=== PATIENT | male | born 1955 | race Two or more races ===

== ENCOUNTER → 2024-01-01 | Outpatient (BNVA) | payer MEDICARE, MEDICAID, SELFPAY | END | disposition home or self-care (01) | PROVIDERS: PCP Physician Assistant; Referring Provider Physician Assistant; Visit Provider Urology | DX: N40.1 Benign prostatic hyperplasia with lower urinary tract symptoms (principal); N13.8 Other obstructive and reflux uropathy; R97.20 Elevated prostate specific antigen [PSA]; I10 Essential (primary) hypertension; Z80.0 Family history of malignant neoplasm of digestive organs; E66.9 Obesity, unspecified; Z68.28 Body mass index [BMI] 28.0-28.9, adult | CPT/HCPCS: 81003; 99212; G0463 ==

== ENCOUNTER → 2024-03-30 | Outpatient (CLI) | payer MEDICARE, MEDICAID, SELFPAY ==
--- NOTE | 2024-03-30 10:38 | XR_ITS ---
Examination: CT chest with intravenous contrast CT abdomen with intravenous contrast CT pelvis with intravenous contrast CT chest without intravenous contrast CT abdomen without intravenous contrast CT pelvis without intravenous contrast 2-D coronal and sagittal reconstructions Time of exam: March 30, 2024 1126 hours INDICATIONS: Diagnosis malignant neoplasm of the colon this month with staging CTDI: vol (mGy) : 24.7 DLP: (mGycm): 1472 Technique: Multiple axial images of the chest, abdomen and pelvis with intravenous contrast, 3.0 mm slice thickness. Images obtained pre and post intravenous injection Isovue 370 60 cc. 2-D sagittal and coronal reconstructions. Low dose protocols were performed. One or more of the following dose reduction techniques were used; automated exposure control, adjustment of the mA and/or KV according to patient size, use of iterative reconstruction technique. Findings: 4 mm left thyroid nodule No thoracic aortic aneurysmal dilatation Pulmonary artery opacification is reduced No paratracheal tracheobronchial or bronchopulmonary adenopathy 2 mm pulmonary nodule right midlung No pneumonia or pulmonary edema No pleural disease 8mm right lobe liver cyst No focal liver or splenic lesions Absent gallbladder No pancreatic or adrenal mass Multiple bilateral benign renal cysts, the largest in the left kidney 6.8 cm Probable proteinaceous cyst lateral margin right kidney 12 mm and lower pole right kidney 13 mm Aorta normal size Normal appendix Colonic diverticulosis Thickening of the wall of the sigmoid colon at least 18 mm, axial image 251, 4 mm lymph node adjacent to this thickening of the sigmoid colon Prostate is enlarged with irregular contour, transverse dimension 5.3 cm Urinary bladder wall thickening up to 4 mm Severe osteopenia IMPRESSION: 2 mm pulmonary nodule right upper lobe, with this study as baseline recommend 6 month follow-up CT chest without contrast Recommend renal sonography to confirm benign cyst right kidney No focal liver lesions No abdominal or pelvic lymphadenopathy Focal thickening of the wall of the sigmoid colon as above, clinical correlation advised, 4 mm lymph node adjacent to this colonic wall thickening
== END | disposition home or self-care (01) ==
PROVIDERS: PCP Internal Medicine Gastroenterology; Referring Provider Physician Assistant; Visit Provider Physician Assistant
DX: R91.1 Solitary pulmonary nodule (principal); K63.89 Other specified diseases of intestine; C18.9 Malignant neoplasm of colon, unspecified
CPT/HCPCS: 71270; 74178; A4649; Q9967

== ENCOUNTER 2024-07-08 10:47 | Day surgery (SDC) | payer MEDICARE, SELFPAY ==
--- NOTE | 2024-07-07 07:00 | EKG_ITS ---
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
[2024-07-07 09:00] VITALS: BMI 29.7
[2024-07-07 09:37] LABS: Collection Type, Urine Clean Catch
[2024-07-07 10:27] LABS: Bilirubin,Urine Negative (Negative); Blood,Urine Negative (Negative); Clarity,Urine Clear (Clear/Hazy); Color,Urine Colorless (Lt Yel-Yel); Glucose, Urine Negative (Negative); Ketones,Urine Negative (Negative); Leukocyte Esterase,Urine Negative (Negative); Nitrite,Urine Negative (Negative); PH,Urine 6.5 (5.0-7.0); Protein,Urine Negative (Neg - Trace); RBC,Urine < 1 /hpf (0-3); Specific Gravity,Urine 1.004 (1.001-1.035); Squamous Epithelial Cell,Urine < 1 /hpf (0-5); Urobilinogen,Urine Negative mg/dL (0.0-1.0); WBC,Urine < 1 /hpf (0-5)
[2024-07-07 10:27] LABS: Basophils % (Auto) 0 % (0-2.5); Eosinophils # (Auto) 0.3 Thou/mm3 (0.0-0.5); Eosinophils % (Auto) 5 % (0-10); Hematocrit 40.8 % (41.0-53.0); Hemoglobin 13.6 g/dL (13.5-16.0); Immature Granulocytes % (Auto) 0 % (0-0); Immature Granulocytes Auto 0.01 Thou/mm3 (0.00-0.00); Lymphocytes # (Auto) 2.5 Thou/mm3 (1.0-4.8); Lymphocytes % (Auto) 43 % (10-50); Mean Corpuscular HGB Conc 33.3 g/dl (31.0-37.0); Mean Corpuscular Hemoglobin 27.8 pg (25.0-35.0); Mean Corpuscular Volume 83 fL (80-100); Monocytes # (Auto) 0.5 Thou/mm3 (0.0-0.8); Monocytes % (Auto) 9 % (0-12); Neutrophils # (Auto) 2.5 Thou/mm3 (1.8-7.7); Neutrophils % (Auto) 43 % (37-80); Nucleated Red Blood Cell % 0 /100 WBC (0); Platelet Count 177 Thou/mm3 (140-440); RDW Standard Deviation 41.3 fL (35.1-43.9); White Blood Count 5.8 Thou/mm3 (3.8-10.6)
[2024-07-07 10:42] LABS: Alanine Aminotransferase 17 U/L (10-49); Albumin, Serum 4.6 gm/dL (3.4-4.8); Albumin/Globulin Ratio 1.7 (1.2-2.2); Alkaline Phosphatase 91 U/L (46-116); Aspartate Amino Transferase 24 U/L (0-34); BUN/Creatinine Ratio 11 Ratio (12-20); Bilirubin,Total 0.5 mg/dL (0.3-1.2); Blood Urea Nitrogen 10 mg/dL (9-23); Calcium 9.3 mg/dL (8.3-10.6); Calcium (Corrected) 9.3 mg/dL (8.5-10.1); Carbon Dioxide 28.7 mMol/L (20.0-31.0); Creatinine (Component) 0.9 mg/dL (0.6-1.3); Estimated Creatinine Clearance 73.8 mL/min (>60); Globulin 2.7 gm/dL (2.3-3.5); Glucose 93 mg/dL (74-106); Total Protein 7.3 gm/dL (5.7-8.2); eGFR > 60 See Note
[2024-07-07 10:46] LABS: Anion Gap 6 (7-16); Chloride 104 mMol/L (98-107); Osmolality,Calculated 276 (275-295); Potassium 3.6 mMol/L (3.4-5.1); Sodium 139 mMol/L (136-145)
--- NOTE | 2024-07-07 13:55 | SUR.PREOP ---
Pt's ride and daughter Piper notified to bring pt tomorrow at 1030.
--- NOTE | 2024-07-07 16:09 | ESHP_ITS ---
RE: YARIEL MILLER : 1955 DATE OF ADMISSION: 07/07/2024 HISTORY OF PRESENT ILLNESS: The patient is a 69-year-old gentleman, who was referred to me with a history of prostatism and elevated PSA. His PSA is 9.0. He is Hebrew- speaking. Nocturia x1. Urinary stream is fair. There is no burning. No blood in the urine. PAST MEDICAL HISTORY: He has a history of colon cancer and had surgery in 05/2024. He has a history of hypertension. No history of diabetes. PAST SURGICAL HISTORY: Previous surgeries include cholecystectomy, left eye surgery, left kidney cyst, and colon surgery. ALLERGIES: NONE KNOWN. HOME MEDICATIONS: He takes: 1. Tamsulosin 0.4 mg. 2. Losartan. 3. Statin medication. 4. Norvasc. 5. . SOCIAL HISTORY: He has 8 children. PHYSICAL EXAMINATION: Reveals: HEENT: Normal. NECK: Supple. LUNGS: Clear. CARDIOVASCULAR: Heart sounds are normal. ABDOMEN: Soft without any organomegaly. No guarding. No rigidity. EXTREMITIES: Normal. GENITOURINARY: Phallus is normal. Testes are down in the scrotum. RECTAL: Revealed moderately enlarged prostate, left lobe is larger than right, and prostate is quite high on rectal exam. The patient had colon surgery done in [place]. Now, he is scheduled to have cystoscopy, transrectal prostatic ultrasound with ultrasound-guided prostatic needle biopsy. His PSA, which was 9, it is now 10.5. Planned procedure, risks, and complications have been discussed with the patient. The patient has understood them and agreed to proceed. DT: 15:00:56 TT: 16:01:00 Ref: [id number] - TID: [id number]
[2024-07-08] VITALS (7 sets, daily range): BP systolic 116–134; BP diastolic 75–86; PULSE 69–91; RESP 12–20; TEMP 36.4–36.9; O2SAT 97–99; BMI 29.2
--- NOTE | 2024-07-08 13:00 | SUR.PHASEII ---
1300 Patient arrived to recovery resting comfortably in [facility], drowsy and talking with staff, on oxygen 3L via oxy mask, breathing unlabored, vital sign stables, denies pain and nausea, report received from Khalida SANTANA/Kristin SANTANA and Dr. Medina
--- NOTE | 2024-07-08 13:57 | SUR.PHASEII ---
1357 Patient meets discharge criteria from recovery, awake and alert, breathing unlabored, vital signs stable, denies pain and nausea, able to dress himself into his clothing, discharge instructions given to patient and patients daughter who was on speaker phone with the assistance of the telephone tetryl nitrator operator Nika ID#[id number], daughter signed instructions at [facility], patient given all his belongings prior to discharge, transported via wheelchair and left in a private vehicle.
--- NOTE | 2024-07-08 22:05 | ESOP_ITS ---
RE: YARIEL MILLER : 1955 DATE OF OPERATION: PREOPERATIVE DIAGNOSES: Prostatism, prostatic obstruction and elevated PSA of 9.0. POSTOPERATIVE DIAGNOSES: Prostatism, prostatic obstruction and elevated PSA of 9.0. PROCEDURES PERFORMED: Cystoscopy, urethral dilatation, transrectal prostatic ultrasound with ultrasound-guided prostatic needle biopsy. ANESTHESIA: Monitored anesthesia by Dr. Medina. INDICATION: The patient is a 69-year-old gentleman with nocturia 1 time, PSA 9.0. Rectally, he has a moderately enlarged prostate with some firmness on the left prostatic lobe. He is now scheduled to have cystoscopy, transrectal prostatic ultrasound with ultrasound- guided prostatic needle biopsy. Planned procedure, risks and complications have been discussed with the patient. The patient understood them and agreed to proceed. DESCRIPTION OF PROCEDURE: After the patient was brought to the operating table under adequate monitored anesthesia in dorsal lithotomy position, parts were prepped and draped in the usual fashion. Cystoscopy was then carried out, which revealed adequate urethral meatus, normal-appearing urethra and moderately enlarged bilobed prostate. Scope was introduced into the bladder. Residual urine 2 ounces, yellow and clear. There are no intravesical stones or tumors. Ureteral orifice was found to be normal in position. Scope was withdrawn. Urethra was dilated. The patient was then turned in the left lateral position. Transrectal prostatic ultrasound was carried out and biopsies were obtained from both lobes using ultrasound guidance. The patient tolerated the entire procedure well and left the room in good condition. About 12 biopsies were obtained from the prostate from both lobes. DT: 13:07:35 TT: 22:03:00 Ref: [id number] - TID: [id number]
== END 2024-07-08 14:00 | disposition home or self-care (01) ==
PROVIDERS: Anesthesiology; PCP Physician Assistant; Referring Provider Surgery; Visit Provider Surgery
PROC: (CPT 55700; principal; 2024-07-08 12:15)
PROC: 0TJB8ZZ Inspection of Bladder, Via Natural or Artificial Opening Endoscopic (ICD-10-PCS; CPT 52000; 2024-07-08 12:15)
DX: N40.1 Benign prostatic hyperplasia with lower urinary tract symptoms (principal); Z90.49 Acquired absence of other specified parts of digestive tract; Z85.038 Personal history of other malignant neoplasm of large intestine; I10 Essential (primary) hypertension; Z01.810 Encounter for preprocedural cardiovascular examination; R97.20 Elevated prostate specific antigen [PSA]; R35.1 Nocturia; N41.1 Chronic prostatitis
CPT/HCPCS: 52281; 55700; 36415; 76942; 80053; 81001; 85025; 87086; 93005; A4217; A4649; J0694; J2250; J2704